=== PATIENT | female | born 1990 | race Caucasian/White ===

== ENCOUNTER 2019-04-23 23:34 | Inpatient (IN) | payer BC, SELFPAY ==
[2019-04-23] MEDS ORDERED: Carboprost Tromethamine 250 MCG/1 ML Amp IM PRN (23:42)
[2019-04-23] MEDS ORDERED: Nalbuphine 10 MG/1 ML Vial IVPUSH PRN (23:42)
[2019-04-23] MEDS ORDERED: Lidocaine 1% 50 ML MDV INJECT PRN (23:42)
[2019-04-23] MEDS ORDERED: Sodium Chloride 0.9% 10 ML Syringe FLUSH PRN (23:42)
[2019-04-23] MEDS ORDERED: Tranexamic Acid 1,000 MG in Sodium Chloride 0.9% 100 ML IV PRN (23:42)
[2019-04-23] MEDS ORDERED: Misoprostol 200 MCG Tab PO PRN (23:42)
[2019-04-23] MEDS ORDERED: Butorphanol 1 MG/ML SDV IVPUSH PRN (23:42)
[2019-04-23] MEDS ORDERED: Water For Irrigation,Sterile 1,000 ML Container IRR PRN (23:42)
[2019-04-23] MEDS ORDERED: Sodium Chloride 0.9% 10 ML SDV IV PRN (23:42)
[2019-04-23] MEDS ORDERED: Methylergonovine 0.2 MG/1 ML Amp IM PRN (23:42)
[2019-04-23] MEDS ORDERED: Sodium Chloride 0.9% 2.5 ML Syringe FLUSH PRN (23:42)
[2019-04-23] MEDS ORDERED: Lactated Ringers 1,000 ML IV SCH (23:45)
[2019-04-23] MEDS ORDERED: Oxytocin/0.9 % Sodium Chloride 30 UNIT/500 ML BAG IV SCH (23:45)
[2019-04-24] MEDS ORDERED: fentaNYL 100 MCG/2 ML SDV ONE (00:08)
[2019-04-24] MEDS ORDERED: Ropivacaine HCl/PF 100 ML ONE (00:09)
[2019-04-24] MEDS ORDERED: Ropivacaine 0.2% PF 2 MG/ML 20 ML SDV ONE (00:09)
[2019-04-24] MEDS ORDERED: Oxytocin/0.9 % Sodium Chloride 30 UNIT/500 ML BAG ONE (00:19)
--- NOTE | 2019-04-24 01:03 | PCM.PREANE ---
Preanesthetic Assessment - Procedure Proposed Procedure: JAAML. 8cm active labor - Anesthesia/Transfusion/Family Hx Anesthesia History: Prior Anesthesia Without Reaction Family History of Anesthesia Reaction: No Transfusion History: No Prior Transfusion(s) Intubation History: Unknown - Review of Systems General: No Symptoms Pulmonary: No Symptoms Cardiovascular: No Symptoms Gastrointestinal: No Symptoms Neurological: No Symptoms Other: Reports: None (Term. 8cm. Active labor. Pain 9/10) - Physical Assessment NPO Status Date: 04/24/19 NPO Status Time: 23:55 Height: 1.83 m Weight: 115.212 kg ASA Class: 2 Mental Status: Alert & Oriented x3 Airway Class: Mallampati = 1 Dentition: Reports: Normal Dentition Thyro-Mental Finger Breadths: 3 Mouth Opening Finger Breadths: 3 ROM/Head Extension: Full Lungs: Clear to Auscultation Cardiovascular: Regular Rate - Lab Values: Laboratory Last Values WBC 9.79 K/uL (4.0-11.0) 04/24/19 00:00 RBC 4.31 M/uL (4.30-5.90) 04/24/19 00:00 Hgb 13.6 g/dL (12.0-16.0) 04/24/19 00:00 Hct 38.5 % (36.0-46.0) 04/24/19 00:00 MCV 89.3 fL (80.0-98.0) 04/24/19 00:00 MCH 31.6 pg (27.0-32.0) 04/24/19 00:00 MCHC 35.3 g/dL (31.0-37.0) 04/24/19 00:00 RDW Std Deviation 41.9 fl (28.0-62.0) 04/24/19 00:00 RDW Coeff of Chance 13 % (11.0-15.0) 04/24/19 00:00 Plt Count 223 K/uL (150-400) 04/24/19 00:00 MPV 10.00 fL (7.40-12.00) 04/24/19 00:00 Nucleated RBC % 0.0 /100WBC 04/24/19 00:00 Nucleated RBCs # 0 K/uL 04/24/19 00:00 - Allergies Allergies/Adverse Reactions: Allergies Allergy/AdvReac Type Severity Reaction Status Date / Time Sulfa (Sulfonamide Allergy Hives Verified 03/27/19 15:43 Antibiotics) - Blood Blood Available: No Product(s) Available: None - Acknowledgements Anesthesia Type Planned: Epidural Pt an Appropriate Candidate for the Planned Anesthesia: Yes Alternatives and Risks of Anesthesia Discussed w Pt/Guardian: Yes Pt/Guardian Understands and Agrees with Anesthesia Plan: Yes Additional Comments: Discussed. ? answered. Understands ? quality of pain control at this stage. Permit signed. Wishes to proceed. PreAnesthesia Questionnaire - HOME MEDS Home Medications: Home Meds Sertraline [Zoloft] 200 mg PO DAILY 03/27/19 [History] buPROPion HCl [Wellbutrin Xl] 150 mg PO DAILY 03/27/19 [History] - CURRENT (IN HOUSE) MEDS Current Meds: Current Medications Butorphanol Tartrate (Stadol) 1 mg IVPUSH Q1H PRN PRN Reason: Pain Carboprost Tromethamine (Hemabate Ds) 250 mcg IM ASDIRECTED PRN PRN Reason: Post Hemorrhage Lactated Ringer's (Ringers, Lactated) 1,000 mls @ 150 mls/hr IV ASDIRECTED [facility] Last Admin: 04/24/19 00:30 Dose: 999 mls/hr Oxytocin/Sodium Chloride (Oxytocin 30 Unit/500 Ml-Ns) 30 unit in 500 mls @ 500 mls/hr IV TITRATE [facility] Tranexamic Acid 1,000 mg/ (Sodium Chloride) 110 mls @ 660 mls/hr IV ONETIME PRN PRN Reason: Bleeding Lidocaine HCl (Xylocaine 1%) 50 ml INJECT ONETIME PRN PRN Reason: Laceration repair Methylergonovine Maleate (Methergine) 0.2 mg IM ASDIRECTED PRN PRN Reason: Post Hemorrhage Misoprostol (Cytotec) 200 mcg PO ONETIME PRN PRN Reason: Post Hemorrhage Nalbuphine HCl (Nubain) 10 mg IVPUSH Q1H PRN PRN Reason: Pain (severe 7-10) Sodium Chloride (Saline Flush) 10 ml FLUSH ASDIRECTED PRN PRN Reason: Keep Vein Open Sodium Chloride (Saline Flush) 2.5 ml FLUSH ASDIRECTED PRN PRN Reason: Keep Vein Open Sodium Chloride (Normal Saline) 10 ml IV ASDIRECTED PRN PRN Reason: IV Use Sterile Water (Sterile Water For Irrigation) 1,000 ml IRR ASDIRECTED PRN PRN Reason: delivery Discontinued Medications Fentanyl (Sublimaze) Confirm Administered Dose 100 mcg .ROUTE .STK-MED ONE Stop: 04/24/19 00:09 Ropivacaine (Naropin 0.2%) Confirm Administered Dose 100 mls @ as directed .ROUTE .STK-MED ONE Stop: 04/24/19 00:10 Oxytocin/Sodium Chloride (Oxytocin 30 Unit/500 Ml-Ns) Confirm Administered Dose 30 unit in 500 mls @ as directed .ROUTE .STK-MED ONE Stop: 04/24/19 00:20 Ropivacaine (Naropin 0.2%) Confirm Administered Dose 20 ml .ROUTE .STK-MED ONE Stop: 04/24/19 00:10
--- NOTE | 2019-04-24 01:15 | PCM.SN ---
- Free Text/Narrative Note: Requested for JAMAL, , active labor, 8 cm, pain 9/10. Discussed, ? answered, permit signed, bolus infusing. 0018: Prep with chloroprep 0021: skin local 4ml 1% lidocaine 0022: 17g Touhy needle, space on 1st pass via LUZ with saline/air mix. Reconfirmed with 3ml 0.9 saline. 0025: Cath to 10cm without issues. Occlusive drsg. 0027: Test with 4ml 1.5% lido with 1:200k epi. Test negative. 0033: Bolus over 4 minutes, Naropin 0.2% 8ml with 100 mcg fentanyl added. 0039: Pain lessening, gtt started @ 8ml/hr with bolus 6ml/q20. height 72" Vital sign stable. 0110 complete, pain minimal. Tolerated well. Doing well.
[2019-04-24] MEDS ORDERED: Lanolin 100% Cream 7 GM Tube TOP PRN (03:12)
[2019-04-24] MEDS ORDERED: Docusate Sodium 100 MG Cap PO PRN (03:12)
[2019-04-24] MEDS ORDERED: Ibuprofen 400 MG Tab PO PRN (03:12)
[2019-04-24] MEDS ORDERED: Acetaminophen 500 MG Tab PO PRN ×2 (03:12)
[2019-04-24] MEDS ORDERED: Bisacodyl 10 MG Supp RECTAL PRN (03:12)
[2019-04-24] MEDS ORDERED: Aluminum Hydroxide/Magnesium Hydroxide/Simethicone Susp 30 ML Cup PO PRN (03:12)
[2019-04-24] MEDS ORDERED: oxyCODONE 5 MG Tab PO PRN (03:12)
--- NOTE | 2019-04-24 03:24 | PCM.OPNOTE ---
- General Post-Op/Procedure Note Date of Surgery/Procedure: 04/24/19 Operative Procedure(s): /2nd MLL repaired Findings: Viable female APGARs 8, 9 weight 7 lb 10 oz. Meconium stained amniotic fluid. Spontaneous delivery intact placenta with 3V cord. Pre Op Diagnosis: 39/1 week IUP. Active labor Post-Op Diagnosis: Same Anesthesia Technique: Epidural Primary Surgeon: Christina Tavarez EBL in mLs: 350 Complications: none known Condition: Stable Free Text/Narrative:: Dictation [id number]
--- NOTE | 2019-04-24 05:34 | OR ---
SURGEON: Christina Tavarez M.D. DATE OF PROCEDURE: 04/24/2019 PREOPERATIVE DIAGNOSES: 1. 39 and 1 week intrauterine . 2. Active labor. POSTOPERATIVE DIAGNOSES: 1. 39 and 1 week intrauterine . 2. Active labor. PROCEDURE: Spontaneous vaginal delivery, second-degree midline laceration repaired. ANESTHESIA: Epidural. ESTIMATED BLOOD LOSS: 350 mL. COMPLICATIONS: None known. FINDINGS: Viable female score 8 at one minute and 9 at five minutes. Weight of 7 pounds 10 ounces. Spontaneous delivery, intact placenta, 3-vessel cord. Meconium-stained amniotic fluid. DISPOSITION: Patient in LDRP, infant in nursery. PROCEDURE IN DETAIL: Jasmin is a 29-year-old G2, P1 at 39 and 1 week gestational age, who presented on the evening of 04/23/2019 with regular contractions. On her initial examination, she was found to be 6 cm. Therefore, she was admitted. Routine labs were drawn. IV hydration was initiated. She did request regional anesthesia in the form of epidural, underwent this satisfactorily, became more comfortable and continued to progress. She is group B beta strep negative. heart tones are category 1. Shortly after 2 a.m., the patient was found to be complete, 100% effaced and +1 station. I was called for delivery. Upon my arrival, patient was placed in modified dorsal lithotomy position. Membranes intact. Amniotomy was performed. Meconium-stained fluid was returned. The patient began pushing efforts, pushed readily to a +4 station, was able to deliver infant's head atraumatically spontaneously, followed by anterior shoulder, posterior shoulder and remainder of the body without difficulty. There was a loose nuchal cord x1 noted to be present, reduced manually. The 's oropharynx and nares were bulb suctioned. had good tone and was crying. Therefore, was handed off to her mother with attending nursing staff to her side. After a delay, cord was clamped x2 and cut. Cord arterial, cord venous, cord blood sampling was obtained. Light pressure was applied while the placenta was delivered spontaneously intact. Vigorous fundal uterine massage was then applied while 30 units Pitocin was delivered in 500 mL of IV fluid. Upon inspection of cervix, vaginal sidewalls, and perineum, there was found to be a second-degree midline laceration and bilateral first-degree labial laceration that were repaired using 3-0 Vicryl in the usual fashion. Hemostasis appeared evident. The uterus remained firm. Sponge count, instrument count, needle count was correct. The patient remained in LDRP, to nursery. SHAWN / CELESTINA /[id number]
--- NOTE | 2019-04-24 07:01 | PCM48HPAN ---
Post Anesthesia Note - EVALUATION WITHIN 48HRS OF ANESTHETIC Vital Signs in Normal Range: Yes Patient Participated in Evaluation: Yes Respiratory Function Stable: Yes Airway Patent: Yes Cardiovascular Function Stable: Yes Hydration Status Stable: Yes Pain Control Satisfactory: Yes Nausea and Vomiting Control Satisfactory: Yes Mental Status Recovered: Yes - COMMENTS/OBSERVATIONS Free Text/Narrative:: Doing well. no problems noted.
[2019-04-24] MEDS: Benzocaine/Menthol 20%-0.5% Spray 78 GM Cannister TOP PRN (08:30)
[2019-04-24] MEDS: Witch Hazel Medicated Pads 40/Jar TOP PRN (08:30)
[2019-04-24] MEDS: Ibuprofen 800 MG Tab PO PRN ×2 (08:31→14:41)
[2019-04-24] MEDS ORDERED: Sertraline 100 MG Tab PO SCH ×2 (09:00→21:00)
[2019-04-24] MEDS ORDERED: buPROPion 150 MG Tab.ER PO SCH (09:00)
--- NOTE | 2019-04-24 10:13 | PCM.PNPP ---
- General Info Date of Service: 04/24/19 Functional Status: Reports: Pain Controlled, Tolerating Diet, Ambulating, Urinating - Review of Systems General: Reports: Fatigue. Denies: Fever, Weakness Pulmonary: Denies: Shortness of Breath Cardiovascular: Denies: Chest Pain, Palpitations, Lightheadedness Gastrointestinal: Denies: Abdominal Pain, Nausea, Vomiting Genitourinary: Denies: Flank Pain Musculoskeletal: Reports: No Symptoms Skin: Reports: No Symptoms Neurological: Reports: No Symptoms Psychiatric: Reports: No Symptoms - General Info Date of Service: 04/24/19 - Patient Data Vital Signs - Most Recent: Last Vital Signs Temp 36.4 C 04/24/19 09:44 Pulse 79 04/24/19 09:44 Resp 16 04/24/19 09:44 BP 112/64 04/24/19 09:44 Pulse Ox 100 04/24/19 09:44 Weight - Most Recent: 115.212 kg Lab Results - Last 24 Hours: Laboratory Results - last 24 hr 04/24/19 04/24/19 04/24/19 Range/Units 00:00 00:00 02:46 WBC 9.79 (4.0-11.0) K/uL RBC 4.31 (4.30-5.90) M/uL Hgb 13.6 (12.0-16.0) g/dL Hct 38.5 (36.0-46.0) % MCV 89.3 (80.0-98.0) fL MCH 31.6 (27.0-32.0) pg MCHC 35.3 (31.0-37.0) g/dL RDW Std Deviation 41.9 (28.0-62.0) fl RDW Coeff of Chance 13 (11.0-15.0) % Plt Count 223 (150-400) K/uL MPV 10.00 (7.40-12.00) fL Nucleated RBC % 0.0 /100WBC Nucleated RBCs # 0 K/uL Cord ABG pH 7.158 L (7.18-7.38) Cord ABG Base Excess -5 (-10--2) Cord VBG pH 7.307 (7.25-7.45) Cord VBG Base Excess -3 (-10--2) Blood Type O POSITIVE Antibody Screen NEGATIVE Med Orders - Current: Current Medications Acetaminophen (Tylenol Extra Strength) 500 mg PO Q4H PRN PRN Reason: Pain Acetaminophen (Tylenol Extra Strength) 1,000 mg PO Q4H PRN PRN Reason: Pain Al Hydroxide/Mg Hydroxide (Mag-Al Plus) 30 ml PO Q8H PRN PRN Reason: Heartburn Benzocaine/Menthol (Dermoplast Pain Relief 20%-0.5% [place]) 78 gm TOP ASDIRECTED PRN PRN Reason: Perineal Comfort Measure Last Admin: 04/24/19 08:30 Dose: 1 can Bisacodyl (Dulcolax) 10 mg RECTAL ONETIME PRN PRN Reason: Constipation Bupropion HCl (Wellbutrin Xl) 150 mg PO DAILY [facility] Carboprost Tromethamine (Hemabate Ds) 250 mcg IM ASDIRECTED PRN PRN Reason: Post Hemorrhage Docusate Sodium (Colace) 100 mg PO BID PRN PRN Reason: Constipation Emollient Ointment (Lansinoh Hpa) 0 gm TOP ASDIRECTED PRN PRN Reason: Sore Nipples Last Admin: 04/24/19 08:31 Dose: 1 tube Lactated Ringer's (Ringers, Lactated) 1,000 mls @ 150 mls/hr IV ASDIRECTED [facility] Last Admin: 04/24/19 00:30 Dose: 999 mls/hr Oxytocin/Sodium Chloride (Oxytocin 30 Unit/500 Ml-Ns) 30 unit in 500 mls @ 500 mls/hr IV TITRATE [facility] Last Admin: 04/24/19 02:47 Dose: 999 mls/hr Tranexamic Acid 1,000 mg/ (Sodium Chloride) 110 mls @ 660 mls/hr IV ONETIME PRN PRN Reason: Bleeding Ibuprofen (Motrin) 400 mg PO Q4H PRN PRN Reason: Pain Ibuprofen (Motrin) 800 mg PO Q6H PRN PRN Reason: Pain Last Admin: 04/24/19 08:31 Dose: 800 mg Methylergonovine Maleate (Methergine) 0.2 mg IM ASDIRECTED PRN PRN Reason: Post Hemorrhage Oxycodone HCl (Oxycodone) 5 mg PO Q2H PRN PRN Reason: Pain Sertraline HCl (Zoloft) 200 mg PO BEDTIME [facility] Sodium Chloride (Saline Flush) 10 ml FLUSH ASDIRECTED PRN PRN Reason: Keep Vein Open Sodium Chloride (Saline Flush) 2.5 ml FLUSH ASDIRECTED PRN PRN Reason: Keep Vein Open Sodium Chloride (Normal Saline) 10 ml IV ASDIRECTED PRN PRN Reason: IV Use Sterile Water (Sterile Water For Irrigation) 1,000 ml IRR ASDIRECTED PRN PRN Reason: delivery Last Admin: 04/24/19 02:40 Dose: 1,000 ml Witch Sherley (Tucks) 1 pad TOP ASDIRECTED PRN PRN Reason: comfort care Last Admin: 04/24/19 08:30 Dose: 1 tub Discontinued Medications Butorphanol Tartrate (Stadol) 1 mg IVPUSH Q1H PRN PRN Reason: Pain Fentanyl (Sublimaze) Confirm Administered Dose 100 mcg .ROUTE .STK-MED ONE Stop: 04/24/19 00:09 Ropivacaine (Naropin 0.2%) Confirm Administered Dose 100 mls @ as directed .ROUTE .STK-MED ONE Stop: 04/24/19 00:10 Oxytocin/Sodium Chloride (Oxytocin 30 Unit/500 Ml-Ns) Confirm Administered Dose 30 unit in 500 mls @ as directed .ROUTE .STK-MED ONE Stop: 04/24/19 00:20 Lidocaine HCl (Xylocaine 1%) 50 ml INJECT ONETIME PRN PRN Reason: Laceration repair Misoprostol (Cytotec) 200 mcg PO ONETIME PRN PRN Reason: Post Hemorrhage Nalbuphine HCl (Nubain) 10 mg IVPUSH Q1H PRN PRN Reason: Pain (severe 7-10) Ropivacaine (Naropin 0.2%) Confirm Administered Dose 20 ml .ROUTE .STK-MED ONE Stop: 04/24/19 00:10 Sertraline HCl (Zoloft) 200 mg PO DAILY [facility] - Infant Interaction Support Person: - Exam General: Alert, Oriented Lungs: Normal Respiratory Effort Cardiovascular: Regular Rate, Regular Rhythm GI/Abdominal Exam: Normal Bowel Sounds, Soft Extremities: Pedal Edema (trace). No: Constanza's Sign Skin: Warm, Dry, Intact Neurological: No New Focal Deficit Psy/Mental Status: Alert, Normal Affect, Normal Mood - Problem List & Annotations (1) Vaginal delivery SNOMED Code(s): 182228885 Code(s): O80 - ENCOUNTER FOR FULL-TERM UNCOMPLICATED DELIVERY Status: Acute Current Visit: Yes - Problem List Review Problem List Initiated/Reviewed/Updated: Yes - My Orders Last 24 Hours: My Active Orders 04/23/19 23:42 Patient Status [ADT] Routine Heart Tones [RC] CONTINUOUS Non Stress Test [RC] PER UNIT ROUTINE Vaginal Exam [RC] PRN Vital Signs [RC] PER UNIT ROUTINE RPR (SYPHILIS SERO) W/ RFLX [REF] Routine Carboprost Tromethamine [Hemabate DS] 250 mcg IM ASDIRECTED PRN Methylergonovine [Methergine] 0.2 mg IM ASDIRECTED PRN Sodium Chloride 0.9% [Normal Saline] 10 ml IV ASDIRECTED PRN Sodium Chloride 0.9% [Saline Flush] 10 ml FLUSH ASDIRECTED PRN Sodium Chloride 0.9% [Saline Flush] 2.5 ml FLUSH ASDIRECTED PRN Tranexamic Acid [Cyklokapron] 1,000 mg Sodium Chloride 0.9% [Normal Saline] 100 ml IV ONETIME Water For Irrigation,Sterile [Sterile Water for Irrigation] 1,000 ml IRR ASDIRECTED PRN Peripheral IV Insertion Adult [OM.PC] Routine Resuscitation Status Routine 04/23/19 23:45 Lactated Ringers [Ringers, Lactated] 1,000 ml IV ASDIRECTED Oxytocin/0.9 % Sodium Chloride [Oxytocin 30 Unit/500 ML-NS] 30 unit in 500 ml IV TITRATE 04/24/19 03:12 Patient Status [ADT] Routine May Shower [RC] ASDIRECTED Up ad Jayla [RC] ASDIRECTED Vital Signs [RC] PER UNIT ROUTINE Acetaminophen [Tylenol Extra Strength] 1,000 mg PO Q4H PRN Acetaminophen [Tylenol Extra Strength] 500 mg PO Q4H PRN Alum Hydrox/Mag Hydrox/Simeth [Mag-Al Plus] 30 ml PO Q8H PRN Benzocaine/Menthol [Dermoplast Pain Relief 20%-0.5% [place]] 78 gm TOP ASDIRECTED PRN Docusate Sodium [Colace] 100 mg PO BID PRN Ibuprofen [Motrin] 400 mg PO Q4H PRN Ibuprofen [Motrin] 800 mg PO Q6H PRN Lanolin [Lansinoh HPA] See Dose Instructions TOP ASDIRECTED PRN bisacodyL [Dulcolax] 10 mg RECTAL ONETIME PRN oxyCODONE 5 mg PO Q2H PRN witch Sherley [Tucks] 1 pad TOP ASDIRECTED PRN Assess Lochia [WOMSER] Per Unit Routine Assess Uterine Involution [WOMSER] Per Unit Routine Peripheral IV Discontinue [OM.PC] Routine 04/24/19 03:13 Ice Therapy [OM.PC] Per Unit Routine Perineal Care [OM.PC] Per Unit Routine Sitz Bath [OM.PC] Per Unit Routine 04/24/19 03:15 Cooling Warming Measures [RC] ASDIRECTED 04/24/19 09:00 buPROPion [Wellbutrin XL] 150 mg PO DAILY 04/24/19 21:00 Sertraline [Zoloft] 200 mg PO BEDTIME 04/24/19 Breakfast Regular Diet [DIET] 04/25/19 05:11 HEMOGLOBIN/HEMATOCRIT,HH [HEME] Timed - Assessment Assessment:: PPD 0 status post - Plan Plan:: Continue PP cares
--- NOTE | 2019-04-25 09:00 | PCM.PNPP ---
- General Info Date of Service: 04/25/19 Functional Status: Reports: Pain Controlled, Tolerating Diet, Ambulating, Urinating - Review of Systems General: Denies: Fever, Weakness, Fatigue Pulmonary: Reports: No Symptoms Cardiovascular: Reports: No Symptoms Gastrointestinal: Reports: No Symptoms Genitourinary: Reports: No Symptoms Musculoskeletal: Reports: No Symptoms Skin: Reports: No Symptoms Neurological: Reports: No Symptoms Psychiatric: Reports: No Symptoms - General Info Date of Service: 04/25/19 - Patient Data Vital Signs - Most Recent: Last Vital Signs Temp 36.3 C 04/25/19 08:15 Pulse 84 04/25/19 08:15 Resp 18 04/25/19 08:15 BP 123/76 04/25/19 08:15 Pulse Ox 99 04/25/19 08:15 Weight - Most Recent: 115.212 kg Lab Results - Last 24 Hours: Laboratory Results - last 24 hr 04/25/19 Range/Units 05:24 Hgb 11.2 L (12.0-16.0) g/dL Hct 32.8 L (36.0-46.0) % Med Orders - Current: Current Medications Acetaminophen (Tylenol Extra Strength) 500 mg PO Q4H PRN PRN Reason: Pain Acetaminophen (Tylenol Extra Strength) 1,000 mg PO Q4H PRN PRN Reason: Pain Last Admin: 04/24/19 18:10 Dose: 1,000 mg Al Hydroxide/Mg Hydroxide (Mag-Al Plus) 30 ml PO Q8H PRN PRN Reason: Heartburn Benzocaine/Menthol (Dermoplast Pain Relief 20%-0.5% [place]) 78 gm TOP ASDIRECTED PRN PRN Reason: Perineal Comfort Measure Last Admin: 04/24/19 08:30 Dose: 1 can Bisacodyl (Dulcolax) 10 mg RECTAL ONETIME PRN PRN Reason: Constipation Bupropion HCl (Wellbutrin Xl) 150 mg PO DAILY [facility] Last Admin: 04/24/19 10:17 Dose: 150 mg Carboprost Tromethamine (Hemabate Ds) 250 mcg IM ASDIRECTED PRN PRN Reason: Post Hemorrhage Docusate Sodium (Colace) 100 mg PO BID PRN PRN Reason: Constipation Last Admin: 04/24/19 10:17 Dose: 100 mg Emollient Ointment (Lansinoh Hpa) 0 gm TOP ASDIRECTED PRN PRN Reason: Sore Nipples Last Admin: 04/24/19 08:31 Dose: 1 tube Lactated Ringer's (Ringers, Lactated) 1,000 mls @ 150 mls/hr IV ASDIRECTED [facility] Last Admin: 04/24/19 00:30 Dose: 999 mls/hr Oxytocin/Sodium Chloride (Oxytocin 30 Unit/500 Ml-Ns) 30 unit in 500 mls @ 500 mls/hr IV TITRATE [facility] Last Admin: 04/24/19 02:47 Dose: 999 mls/hr Tranexamic Acid 1,000 mg/ (Sodium Chloride) 110 mls @ 660 mls/hr IV ONETIME PRN PRN Reason: Bleeding Ibuprofen (Motrin) 400 mg PO Q4H PRN PRN Reason: Pain Ibuprofen (Motrin) 800 mg PO Q6H PRN PRN Reason: Pain Last Admin: 04/24/19 14:41 Dose: 800 mg Methylergonovine Maleate (Methergine) 0.2 mg IM ASDIRECTED PRN PRN Reason: Post Hemorrhage Oxycodone HCl (Oxycodone) 5 mg PO Q2H PRN PRN Reason: Pain Sertraline HCl (Zoloft) 200 mg PO BEDTIME [facility] Sodium Chloride (Saline Flush) 10 ml FLUSH ASDIRECTED PRN PRN Reason: Keep Vein Open Sodium Chloride (Saline Flush) 2.5 ml FLUSH ASDIRECTED PRN PRN Reason: Keep Vein Open Sodium Chloride (Normal Saline) 10 ml IV ASDIRECTED PRN PRN Reason: IV Use Sterile Water (Sterile Water For Irrigation) 1,000 ml IRR ASDIRECTED PRN PRN Reason: delivery Last Admin: 04/24/19 02:40 Dose: 1,000 ml Witch Sherley (Tucks) 1 pad TOP ASDIRECTED PRN PRN Reason: comfort care Last Admin: 04/24/19 08:30 Dose: 1 tub Discontinued Medications Butorphanol Tartrate (Stadol) 1 mg IVPUSH Q1H PRN PRN Reason: Pain Fentanyl (Sublimaze) Confirm Administered Dose 100 mcg .ROUTE .STK-MED ONE Stop: 04/24/19 00:09 Ropivacaine (Naropin 0.2%) Confirm Administered Dose 100 mls @ as directed .ROUTE .STK-MED ONE Stop: 04/24/19 00:10 Oxytocin/Sodium Chloride (Oxytocin 30 Unit/500 Ml-Ns) Confirm Administered Dose 30 unit in 500 mls @ as directed .ROUTE .STK-MED ONE Stop: 04/24/19 00:20 Lidocaine HCl (Xylocaine 1%) 50 ml INJECT ONETIME PRN PRN Reason: Laceration repair Misoprostol (Cytotec) 200 mcg PO ONETIME PRN PRN Reason: Post Hemorrhage Nalbuphine HCl (Nubain) 10 mg IVPUSH Q1H PRN PRN Reason: Pain (severe 7-10) Ropivacaine (Naropin 0.2%) Confirm Administered Dose 20 ml .ROUTE .STK-MED ONE Stop: 04/24/19 00:10 Sertraline HCl (Zoloft) 200 mg PO DAILY [facility] - Infant Interaction Support Person: - Recovery Exam Fundal Tone: Firm Fundal Level: At Umbilicus Fundal Placement: Midline Lochia Amount: Scant Lochia Color: Rubra/Red Perineum Description: Intact, Minimal Bruising/Swelling - Exam General: Alert, Oriented Lungs: Normal Respiratory Effort Cardiovascular: Regular Rate, Regular Rhythm GI/Abdominal Exam: Normal Bowel Sounds, Soft Extremities: Pedal Edema (trace). No: Constanza's Sign Skin: Warm, Dry, Intact Psy/Mental Status: Alert, Normal Affect, Normal Mood - Problem List & Annotations (1) Vaginal delivery SNOMED Code(s): 507860926 Code(s): O80 - ENCOUNTER FOR FULL-TERM UNCOMPLICATED DELIVERY Status: Acute Current Visit: Yes - Problem List Review Problem List Initiated/Reviewed/Updated: Yes - My Orders Last 24 Hours: My Active Orders 04/24/19 09:00 buPROPion [Wellbutrin XL] 150 mg PO DAILY 04/24/19 21:00 Sertraline [Zoloft] 200 mg PO BEDTIME - Assessment Assessment:: PPD 1 status post - Plan Plan:: Patient would like to go home. Discharge instructions reviewed. Follow up at [facility] 6 weeks. Discharge to home today.
[2019-04-25] MEDS: Witch Hazel Medicated Pads 40/Jar TOP PRN (11:14)
[2019-04-25] MEDS: Benzocaine/Menthol 20%-0.5% Spray 78 GM Cannister TOP PRN (11:14)
== END 2019-04-25 11:40 | disposition home or self-care (01) | DRG 560 ==
LOC: MW.OBCHECK 23:34 → MW.OB 23:37 → MW.OBCHECK 23:42 → OBSVTOIN 04-24 02:46 → MW.OB 04-24 04:57
PROVIDERS: ADMIT Obstetrics & Gynecology; ATTEND Obstetrics & Gynecology
PROC: 10E0XZZ Delivery of Products of Conception, External Approach (ICD-10-PCS; principal; 2019-04-24)
PROC: 0KQM0ZZ Repair Perineum Muscle, Open Approach (ICD-10-PCS; 2019-04-24)
PROC: 3E0R3BZ Introduction of Anesthetic Agent into Spinal Canal, Percutaneous Approach (ICD-10-PCS; 2019-04-24)
PROC: 10907ZU Drainage of Amniotic Fluid, Diagnostic from Products of Conception, Via Natural or Artificial Opening (ICD-10-PCS; 2019-04-24)
DX: O77.0 Labor and delivery complicated by meconium in amniotic fluid (principal); O70.1 Second degree perineal laceration during delivery; O69.81X0 Labor and delivery complicated by cord around neck, without compression, not applicable or unspecified; Z3A.39 39 weeks gestation of pregnancy; Z37.0 Single live birth
CPT/HCPCS: 01967; 36415; 51702; 59025; 59409; 82803; 85014; 85018; 85027; 86592; 86850; 86900; 86901; 88307; A9270-GY; J2590; J7120

== ENCOUNTER 2020-10-27 09:01 | Day surgery (SDC) | payer BC, SELFPAY ==
--- NOTE | 2020-10-27 08:07 | PCM.PREANE ---
Preanesthetic Assessment - Anesthesia/Transfusion/Family Hx Anesthesia History: Prior Anesthesia Without Reaction Transfusion History: No Prior Transfusion(s) Intubation History: Unknown - Review of Systems General: No Symptoms Pulmonary: No Symptoms Cardiovascular: No Symptoms Gastrointestinal: No Symptoms Neurological: No Symptoms Other: Reports: None - Physical Assessment NPO Status Date: 10/27/20 NPO Status Time: 00:00 Height: 5 ft 11 in Weight: 213 lb ASA Class: 3 Mental Status: Alert & Oriented x3 Airway Class: Mallampati = 2 Dentition: Reports: Normal Dentition ROM/Head Extension: Full Lungs: Clear to Auscultation, Normal Respiratory Effort Cardiovascular: Regular Rate, Regular Rhythm - Allergies Allergies/Adverse Reactions: Allergies Allergy/AdvReac Type Severity Reaction Status Date / Time Sulfa (Sulfonamide Allergy Hives Verified 10/21/20 11:10 Antibiotics) - Acknowledgements Anesthesia Type Planned: General Anesthesia Pt an Appropriate Candidate for the Planned Anesthesia: Yes Alternatives and Risks of Anesthesia Discussed w Pt/Guardian: Yes Pt/Guardian Understands and Agrees with Anesthesia Plan: Yes PreAnesthesia Questionnaire - Past Health History Medical/Surgical History: Denies Medical/Surgical History HEENT History: Reports: None Cardiovascular History: Reports: None Respiratory History: Reports: None Gastrointestinal History: Reports: Chronic Diarrhea, Irritable Bowel Syndrome Genitourinary History: Reports: None 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 History: Reports: None Neurological History: Reports: None Psychiatric History: Reports: Anxiety, Bipolar, Depression Endocrine/Metabolic History: Reports: None Hematologic History: Reports: None Immunologic History: Reports: None Oncologic (Cancer) History: Reports: None Dermatologic History: Reports: None - Past Surgical History Head Surgeries/Procedures: Reports: None HEENT Surgical History: Reports: Oral Surgery Other HEENT Surgeries/Procedures: wisdom teeth extraction Cardiovascular Surgical History: Reports: None Respiratory Surgical History: Reports: None GI Surgical History: Reports: Colonoscopy, Other (See Below) Other GI Surgeries/Procedures: repair of anal fissure Female Surgical History: Reports: Breast Implant Endocrine Surgical History: Reports: None Neurological Surgical History: Reports: None Musculoskeletal Surgical History: Reports: None Oncologic Surgical History: Reports: None Dermatological Surgical History: Reports: None - SUBSTANCE USE Tobacco Use Status *Q: Never Tobacco User - HOME MEDS Home Medications: Home Meds Sertraline [Zoloft] 50 mg PO BEDTIME 03/27/19 [History] buPROPion HCL [Wellbutrin Xl] 450 mg PO DAILY 03/27/19 [History] Fish Oil/Sebastian-3 Fatty Acids [Fish Oil 1,000 MG] 1,000 mg PO DAILY 10/21/20 [History] Multivitamin 1 tab PO DAILY 10/21/20 [History] Topiramate 100 mg PO WITHBREAKFAST 10/21/20 [History] Topiramate 200 mg PO BEDTIME 10/21/20 [History] lamoTRIgine [Lamictal] 300 mg PO BEDTIME 10/21/20 [History] - CURRENT (IN HOUSE) MEDS Current Meds: Current Medications Lactated Ringer's (Ringers, Lactated) 1,000 mls @ 125 mls/hr IV ASDIRECTED [facility]
[~2020-10-27 09:01] MED LIST: Lactated Ringers 1,000 ML IV SCH
[2020-10-27] MEDS ORDERED: propofoL 50 ML ONE (10:06)
--- NOTE | 2020-10-27 11:16 | PCM.OPNOTE ---
- General Post-Op/Procedure Note Date of Surgery/Procedure: 10/27/20 Operative Procedure(s): Colonoscopy and random biopies Findings: Normal colon dictation number [id number] Pre Op Diagnosis: History of colon polyps. Loose stools Post-Op Diagnosis: Normal colonoscopy Primary Surgeon: Mikhail Méndez Pathology: random colon polyps Complications: none Condition: Good
--- NOTE | 2020-10-27 11:26 | PCM48HPAN ---
Post Anesthesia Note - EVALUATION WITHIN 48HRS OF ANESTHETIC Vital Signs in Normal Range: Yes Patient Participated in Evaluation: Yes Respiratory Function Stable: Yes Airway Patent: Yes Cardiovascular Function Stable: Yes Hydration Status Stable: Yes Pain Control Satisfactory: Yes Nausea and Vomiting Control Satisfactory: Yes Mental Status Recovered: Yes Vital Signs: Last Vital Signs Temp 96.3 F L 10/27/20 09:09 Pulse 85 10/27/20 09:09 Resp 15 10/27/20 09:09 BP 133/69 10/27/20 09:09 Pulse Ox 100 10/27/20 09:09
--- NOTE | 2020-10-27 11:26 | PCM.POSTAN ---
POST ANESTHESIA ASSESSMENT - MENTAL STATUS Mental Status: Alert, Oriented - VITAL SIGNS Vital Signs: Last Vital Signs Temp 96.3 F L 10/27/20 09:09 Pulse 85 10/27/20 09:09 Resp 15 10/27/20 09:09 BP 133/69 10/27/20 09:09 Pulse Ox 100 10/27/20 09:09 - RESPIRATORY Respiratory Status: Respiratory Rate WNL, Airway Patent, O2 Saturation Stable - CARDIOVASCULAR CV Status: Pulse Rate WNL, Blood Pressure Stable - GASTROINTESTINAL GI Status: No Symptoms - POST OP HYDRATION Hydration Status: Adequate & Stable
--- NOTE | 2020-10-28 08:13 | OR ---
SURGEON: ROSALEE PETERSON MD DATE OF PROCEDURE: 10/27/2020 PREOPERATIVE DIAGNOSES: 1. History of colon polyps. 2. Loose stools. POSTOPERATIVE DIAGNOSIS: Normal colonoscopy. PRIMARY SURGEON: Rosalee Peterson MD ANESTHESIA: With anesthesiologist. EXTENT OF COLONOSCOPY: To the cecum. PROCEDURE PERFORMED: Colonoscopy and random cold biopsy throughout the colon. BOWEL PREP: Excellent. LIMITATIONS: None. REASON FOR PROCEDURE: The patient is a pleasant 30-year-old female. She said she had a colonoscopy at age 19. She said they found some polyps. At that time, she was also treated for an anal fissure. She denies any blood in her stool. She denies any family history of colon cancer. She does have history with chronic loose stools. She says this has been with her since she was young. She says loose stools come and go, but over the last couple of years, she seems to have longer episodes of these loose stools. PROCEDURE IN DETAIL: Physical examination was performed. The major risks and benefits associated with the procedure were explained to the patient in detail. The patient verbalized understanding and agreement of the same. The patient was then connected to appropriate monitoring device and IV started. EKG, pulse, pulse oximetry, blood pressure, and capnography were monitored throughout the procedure. Continuous oxygen and sedation were provided by the anesthesiologist. The patient was placed in left lateral decubitus position and sedation began. After adequate sedation was achieved, a digital rectal exam was performed. No rectal masses or polyps were felt. Now, a well-lubricated Olympus colonoscope was entered in the rectum and advanced under direct visualization to the level of the cecum. Cecum was identified by both visual and anatomic landmarks. Photographs were taken of the cecal cap. Scope was then slowly withdrawn in somewhat circular fashion looking at the color, texture, anatomy, and integrity of the mucosa from the cecum to the anal canal. The patient had a very good bowel prep with some minimal liquid stool which was suctioned and irrigated out for good look at the mucosa. No lesions or polyps were seen. Because of her chronic loose stools, we did do random biopsies throughout the colon. The scope was retroflexed in the rectum. Scope was completely removed and the procedure was terminated. ENDOSCOPIC DIAGNOSIS: Normal colonoscopy. RECOMMENDATIONS: The patient will follow up in clinic to go over pathology. Followup colonoscopy will depend on pathology, but most likely another one in 10 years. Sooner if she develops signs or symptoms such as change in bowel habits or blood in stool. BECKI / CELESTINA /[id number]
== END 2020-10-27 12:00 | disposition home or self-care (01) ==
LOC: MW.SDS 09:01
PROVIDERS: ATTEND Surgery
DX: K52.9 Noninfective gastroenteritis and colitis, unspecified (principal); J30.9 Allergic rhinitis, unspecified; Z88.2 Allergy status to sulfonamides; Z86.010 Personal history of colon polyps; Z79.899 Other long term (current) drug therapy; Z98.890 Other specified postprocedural states
CPT/HCPCS: 45380; 81025; J2704; J7120; 00812; 88305

== ENCOUNTER 2021-06-21 14:17 | Emergency (ER) | payer BC, OTHER, SELFPAY ==
[2021-06-21] MEDS ORDERED: Sodium Chloride 0.9% 1,000 ML IV ONE (15:27)
[2021-06-21] MEDS ORDERED: Ondansetron 4 MG/2 ML SDV IVPUSH ONE (15:27)
[2021-06-21 16:36] LABS: BLOOD UREA NITROGEN,BUN 7 mg/dL (7.0-18.0); CARBON DIOXIDE,CO2 23.2 mmol/L (21.0-32.0); CHLORIDE,CL 104 mmol/L (98-107); GLUCOSE RANDOM 101 mg/dL (74-106); POTASSIUM,K 3.8 mmol/L (3.5-5.1); SODIUM,NA 137 mmol/L (136-145)
== END 2021-06-21 17:40 | disposition home or self-care (01) ==
LOC: MW.ED 14:17
DX: O99.891 Other specified diseases and conditions complicating pregnancy (principal); R10.11 Right upper quadrant pain; Z88.2 Allergy status to sulfonamides; Z3A.01 Less than 8 weeks gestation of pregnancy
CPT/HCPCS: 36415; 76705; 76817; 80053; 81003; 84702; 85025; 86900; 86901; 99284; J7030

== ENCOUNTER 2022-02-10 02:55 | Inpatient (IN) | payer BC ==
[2022-02-10] MEDS ORDERED: Water For Irrigation,Sterile 1,000 ML Container IRR PRN (03:34)
[2022-02-10] MEDS ORDERED: Misoprostol 200 MCG Tab PO PRN (03:34)
[2022-02-10] MEDS ORDERED: Lidocaine 1% 50 ML MDV INJECT PRN (03:34)
[2022-02-10] MEDS ORDERED: Methylergonovine 0.2 MG/1 ML Amp IM PRN (03:34)
[2022-02-10] MEDS ORDERED: Sodium Chloride 0.9% 2.5 ML Syringe FLUSH PRN (03:34)
[2022-02-10] MEDS ORDERED: Terbutaline 1 MG/ML SDV SUBCUT PRN (03:34)
[2022-02-10] MEDS ORDERED: Butorphanol 1 MG/ML SDV IVPUSH PRN (03:34)
[2022-02-10] MEDS ORDERED: Sodium Chloride 0.9% 10 ML Syringe FLUSH PRN (03:34)
[2022-02-10] MEDS ORDERED: Tranexamic Acid 1,000 MG in Sodium Chloride 0.9% 100 ML IV PRN (03:34)
[2022-02-10] MEDS ORDERED: Ondansetron 4 MG/2 ML SDV IVPUSH PRN (03:34)
[2022-02-10] MEDS ORDERED: Carboprost Tromethamine 250 MCG/1 ML Amp IM PRN (03:34)
[2022-02-10] MEDS ORDERED: Sodium Chloride 0.9% 20 ML SDV IV PRN (03:34)
[2022-02-10] MEDS ORDERED: Oxytocin/0.9 % Sodium Chloride 30 UNIT/500 ML BAG IV SCH ×2 (03:45)
[2022-02-10] MEDS ORDERED: Misoprostol 25 MCG (1/4 of 100 MCG) Tab VAG PRN ×2 (04:00→08:00)
[2022-02-10] MEDS: Lactated Ringers 1,000 ML IV SCH ×2 (08:50→10:20)
[2022-02-10] MEDS ORDERED: Bupivacaine 0.5% 10 ML SDV ONE (09:58)
[2022-02-10] MEDS ORDERED: Ropivacaine/PF 400 MG/200 ML PCA ONE (09:58)
[2022-02-10] MEDS ORDERED: Phenylephrine HCl In 0.9% NaCl 1 MG/10 ML Vial IVPUSH ONE (10:56)
[2022-02-10] MEDS ORDERED: ePHEDrine 50 MG/ML SDV IM ONE (10:58)
[2022-02-10] MEDS ORDERED: Phenylephrine HCl In 0.9% NaCl 1 MG/10 ML Vial IVPUSH PRN (11:02)
[2022-02-10] MEDS ORDERED: ePHEDrine 50 MG/ML SDV IVPUSH PRN ×2 (11:02)
[2022-02-10] MEDS ORDERED: Ropivacaine HCl/PF 400 MG in Premix Bag 1 BAG EPIDUR SCH (11:15)
[2022-02-10] MEDS ORDERED: Phenylephrine HCl In 0.9% NaCl 1 MG/10 ML Vial IVPUSH SCH (11:15)
[2022-02-10] MEDS ORDERED: oxyCODONE 5 MG Tab PO PRN (12:40)
[2022-02-10] MEDS ORDERED: Acetaminophen 500 MG Tab PO PRN ×2 (12:40)
[2022-02-10] MEDS ORDERED: Benzocaine/Menthol 20%-0.5% Spray 78 GM Cannister TOP PRN (12:40)
[2022-02-10] MEDS ORDERED: Lanolin 100% Cream 7 GM Tube TOP PRN (12:40)
[2022-02-10] MEDS ORDERED: Bisacodyl 10 MG Supp RECTAL PRN (12:40)
[2022-02-10] MEDS ORDERED: Ibuprofen 400 MG Tab PO PRN (12:40)
[2022-02-10] MEDS ORDERED: Ibuprofen 800 MG Tab PO PRN (12:40)
[2022-02-10] MEDS: Witch Hazel Medicated Pads 40/Jar TOP PRN (16:13)
[2022-02-11] MEDS: Witch Hazel Medicated Pads 40/Jar TOP PRN ×2 (05:32→15:50)
[2022-02-11] MEDS: Docusate Sodium 100 MG Cap PO PRN ×2 (09:10→21:04)
[2022-02-12] MEDS: Docusate Sodium 100 MG Cap PO PRN (09:15)
== END 2022-02-12 11:47 | disposition home or self-care (01) | DRG 560 ==
LOC: MW.OBCHECK 02:55 → MW.OB 02:57 → MW.OBCHECK 03:34 → OBSVTOIN 12:23 → MW.OB 20:10
PROVIDERS: ADMIT Obstetrics & Gynecology; ATTEND Obstetrics & Gynecology
PROC: 10E0XZZ Delivery of Products of Conception, External Approach (ICD-10-PCS; principal; 2022-02-10)
PROC: 10907ZC Drainage of Amniotic Fluid, Therapeutic from Products of Conception, Via Natural or Artificial Opening (ICD-10-PCS; 2022-02-10)
PROC: 3E033VJ Introduction of Other Hormone into Peripheral Vein, Percutaneous Approach (ICD-10-PCS; 2022-02-10)
PROC: 0HQ9XZZ Repair Perineum Skin, External Approach (ICD-10-PCS; 2022-02-10)
PROC: 3E0P7VZ Introduction of Hormone into Female Reproductive, Via Natural or Artificial Opening (ICD-10-PCS; 2022-02-10)
PROC: 3E0R3BZ Introduction of Anesthetic Agent into Spinal Canal, Percutaneous Approach (ICD-10-PCS; 2022-02-10)
PROC: 00HU33Z Insertion of Infusion Device into Spinal Canal, Percutaneous Approach (ICD-10-PCS; 2022-02-10)
DX: O99.344 Other mental disorders complicating childbirth (principal); O99.214 Obesity complicating childbirth; Z3A.38 38 weeks gestation of pregnancy; Z37.0 Single live birth; O77.0 Labor and delivery complicated by meconium in amniotic fluid; O70.0 First degree perineal laceration during delivery; Z20.822 Contact with and (suspected) exposure to COVID-19; F41.8 Other specified anxiety disorders
CPT/HCPCS: 36415; 59025; 59409; 82803; 85014; 85018; 85027; 86592; 86850; 86900; 86901; A9270-GY; J2590; J2795; J3490; J7120; U0002